=== PATIENT | male | born 1995 | race African-American/Black ===

== ENCOUNTER 2017-05-03 19:39 | Emergency (ER) | payer SELFPAY ==
[~2017-05-03] VITALS: Ht 170.2 cm; Wt 64.4 kg
[2017-05-03 19:45] VITALS: BP 156/87
[2017-05-03] MEDS ORDERED: KETOROLAC 60 MG/2 ML VIAL. IM ONE (20:00)
[2017-05-03] MEDS ORDERED: NAPR500T PO (20:11)
[2017-05-03] MEDS ORDERED: ACET325T9 PO (20:11)
[2017-05-03] MEDS ORDERED: DIAZ5TAB PO (20:11)
--- NOTE | 2017-05-03 20:11 | PHYS DOC ---
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 He is taking some Tylenol with minimal improvement of his symptoms. Pain is worse with range of motion and direct pressure over this portion of the spine. He denies any numbness and tinea into his legs, bowel or bladder incontinence, night sweats, weight loss, penile discharge, hematuria, blood in his urine, diarrhea, vomiting or other symptoms. Patient has had one episode of tingling to his hand with some carpopedal spasms that resolved sometime ago. Patient denies any symptoms at this time. He is able to walk without issue denies any direct trauma to his back. He denies being an IV drug user, Review of Systems Review of Systems Constitutional: Denies fever or chills [] Eyes: Denies change in visual acuity, redness, or eye pain [] HENT: Denies nasal congestion or sore throat [] Respiratory: Denies cough or shortness of breath [] Cardiovascular: No additional information not addressed in HPI [] GI: Denies abdominal pain, nausea, vomiting, bloody stools or diarrhea [] : Denies dysuria or hematuria [] Musculoskeletal: He complains of lower back pain on the right. Integument: Denies rash or skin lesions [] Neurologic: Denies headache, focal weakness or sensory changes [] Endocrine: Denies polyuria or polydipsia [] Current Medications Current Medications Current Medications Medications (Trade) Dose Ordered Sig/[facility] Start Time Stop Time Status Last Admin Dose Admin Ketorolac Tromethamine (Toradol) 60 mg 1X ONCE 05/03/17 20:00 05/03/17 20:01 UNV Allergies Allergies Allergies Coded Allergies Type Severity Reaction Last Updated Verified No Known Drug Allergies 05/03/17 No Physical Exam Physical Exam Of the vital signs recorded on the chart they are within normal limits. Constitutional: Well developed, well nourished, no acute distress, non-toxic appearance. [] Neck: Normal range of motion, no tenderness, supple, no stridor. [] Cardiovascular:Heart rate regular rhythm, no murmur [] Lungs & Thorax: Bilateral breath sounds clear to auscultation [] Skin: Warm, dry, no erythema, no rash. [] Back: Patient has tenderness to palpation with dari spinae muscles between L1 and L4 on the right lumbar spine. There is no external [place], no rash or changes to skin, there is no midline tenderness palpation over the bony prominences of the lumbar spine. Patient has no evidence of weakness with a negative straight leg raise bilaterally. Patient has normal sensation to light touch of her perception of the lower extremity's. He has a normal gait. Extremities: No tenderness, no cyanosis, no clubbing, ROM intact, no edema. [] Neurologic: Alert and oriented X 3, normal motor function, normal sensory function, no focal deficits noted. [] Psychologic: Affect normal, judgement normal, mood normal. [] Current Patient Data Vital Signs Vital Signs Date Time Temp Pulse Resp B/P (MAP) Pulse Ox O2 Delivery O2 Flow Rate FiO2 05/03/17 19:45 98.3 99 20 96 Room Air EKG EKG [] Radiology/Procedures Radiology/Procedures [] Course & Med Decision Making Course & Med Decision Making Pertinent Labs and Imaging studies reviewed. (See chart for details) Patient presents with what I believe to be muscular skeletal lower back pain. Because of his job he exacerbates his symptoms every time he goes to work. I will provide him some anti-inflammatories, Tylenol at high doses as well as a muscle relaxant help with his muscular skeletal spasm. I do not believe is suffering from cauda equina, do not believe this is a renal issue of kidney stone, renal cell carcinoma, and abdominal aneurysm, a trauma or traumatic fracture to the lumbar spine, a localized infection to include epidural abscess or local trauma causing an epidural hematoma or disseminated tuberculosis or a osteolytic cancerous lesion. Patient's (precautions were muscatel low back pain when to return. He has no red flags of extremes of age, or long duration of symptoms with night sweats weight loss and numbness and tingling. [] Dragon Disclaimer Dragon Disclaimer This chart was dictated in whole or in part using Voice Recognition software in a busy, high-work load, and often noisy Emergency Department environment. It may contain unintended and wholly unrecognized errors or omissions. Departure Departure: Impression: Primary Impression: Lower back pain Disposition: HOME, SELF-CARE Condition: IMPROVED Patient Instructions: Back Pain, Adult Additional Instructions: My discharge plan Follow up: In addition patient is asked to followup with their primary doctor, within a week for followup examination and to address patient's ongoing medical conditions. Because patient does not have a regular medical doctor, a local physician Resource Sheet will be provided to establish care primary care. Patient is advised that in the Emergency Department primary complaints are addressed and only in light of known signs and symptoms. Patient should return immediately to the emergency department if new signs and symptoms develop or patient's condition worsens in any way. At time of discharge patient was in stable condition and had verbalized understanding of the discharge instructions. Scripts Diazepam (VALIUM) 5 Mg Tablet 5 MG PO TID for 5 Days, #15 TAB Please use one tablet every 8 hours as needed for muscle spasms. Do not drink alcohol or use other narcotics with this medication. Prov: NADYA PLASENCIA MD 05/03/17 Acetaminophen (TYLENOL) 325 Mg Tablet 1-2 TAB PO QID, #30 TAB 2 Refills Prov: NADYA PLASENCIA MD 05/03/17 Naproxen (NAPROSYN) 500 Mg Tablet 1 TAB PO BID, #20 TAB 1 Refill Prov: NADYA PLASENCIA MD 05/03/17 NADYA PLASENCIA MD May 03, 2017 20:11
== END 2017-05-03 20:00 | disposition home or self-care (01) ==
LOC: ER 19:39
DX: M54.5 Low back pain (principal); J45.909 Unspecified asthma, uncomplicated
CPT/HCPCS: 96372; 99283; J1885